=== PATIENT | female | born 1995 | race Caucasian/White ===

== ENCOUNTER 2017-07-23 01:15 | Emergency (ER) | payer SELFPAY ==
[~2017-07-23] VITALS: Ht 167.6 cm; Wt 65.8 kg
[2017-07-23 01:20] VITALS: BP 136/87
--- NOTE | 2017-07-23 01:28 | NUR ---
PT. AMBULATES TO ER BED 7
--- NOTE | 2017-07-23 01:32 | NUR ---
Patient being evaluated by at bedside.
--- NOTE | 2017-07-23 01:35 | NUR ---
21Y/F PT. PRESENTS TO ED WITH C/O DYSURIA X2 DAYS. DENIES FEVER, N/V, NO MEDICAL HX. AAO X4, AMBULATORY WITH STEADY GAIT. RESPIRATIONS ROOM AIR, EVEN AND UNLABORED. C/O BLADDER PAIN 07/02. VSS, ER MADE AWARE OF PT. STATUS.
[2017-07-23] MEDS ORDERED: SULFAMETH/TRIMETH DS 800/160MG 1 TAB PO ONE (01:40)
[2017-07-23] MEDS ORDERED: PHENAZOPYRIDINE 100 MG TAB PO ONE (01:40)
[2017-07-23 01:56] VITALS: BP 136/87
--- NOTE | 2017-07-23 01:57 | NUR ---
Patient discharged with v/s stable. Written and verbal after care instructions given and explained. Patient alert, oriented and verbalized understanding of instructions. Ambulatory with steady gait. All questions addressed prior to discharge. ID band removed. Patient advised to follow up with PMD. Rx of DIFLUCAN 150 MG,PYRIDIUM 200 MG, MACROBID 100 MG given. Patient educated on indication of medication including possible reaction and side effects. Opportunity to ask questions provided and answered.
== END 2017-07-23 01:57 | disposition home or self-care (01) ==
LOC: MED 01:15
DX: N39.0 Urinary tract infection, site not specified (principal)
CPT/HCPCS: 81002; 81025; 99283

== ENCOUNTER 2019-03-01 23:02 | Emergency (ER) | payer MEDICAID, OTHER ==
[~2019-03-01] VITALS: Ht 162.6 cm; Wt 63.5 kg
--- NOTE | 2019-03-01 23:08 | NUR ---
PT AMBULATED TO ER BED 2
[2019-03-01 23:13] VITALS: BP 130/76
--- NOTE | 2019-03-01 23:17 | NUR ---
DR. ALLISON EVALUATING PT
--- NOTE | 2019-03-01 23:18 | NUR ---
PT TO ED WITH C/O VAGINAL ITCHING, DISCHARGE, FOUL ODOR AND DYSURIA X 3 DAYS. PT DENIES VAGINAL BLEEDING. DENIES FEVER/CHILLS. PT PLACED INTO BED, PENDING MD ARREAGA.
[2019-03-01 23:30] LABS: APPEARANCE,URINE CLOUDY (CLEAR); BILIRUBIN,URINE NEGATIVE (NEGATIVE); BLOOD, URINE 3+ (NEGATIVE); COLOR,URINE YELLOW (YELLOW); LEUKOCYTE ESTERASE ,URINE 2+ (NEGATIVE); NITRITE, URINE NEGATIVE (NEGATIVE); UGLUCOSE NEGATIVE (NEGATIVE)
--- NOTE | 2019-03-01 23:54 | NUR ---
Patient discharged with v/s stable. Written and verbal after care instructions given and explained. Patient alert, oriented and verbalized understanding of instructions. Ambulatory with steady gait. All questions addressed prior to discharge. ID band removed. Patient advised to follow up with PMD. Rx of CIPRO, DIFLUCAN given. Patient educated on indication of medication including possible reaction and side effects. Opportunity to ask questions provided and answered.
[2019-03-01 23:55] VITALS: BP 130/76
== END 2019-03-01 23:54 | disposition home or self-care (01) ==
LOC: MED 23:02
DX: B37.3 Candidiasis of vulva and vagina (principal); N39.0 Urinary tract infection, site not specified
CPT/HCPCS: 81001; 87086; 87186; 99283